=== PATIENT | female | born 1965 | race Caucasian/White ===

== ENCOUNTER 2019-06-14 16:58 | Observation (INO) | payer OTHER ==
[~2019-06-14] VITALS: Ht 165.1 cm; Wt 59.7 kg
[~2019-06-14 16:58] MED LIST: CENESTIN0.625 MG PO; OMEPRAZOLE20 M1 PO
[2019-06-14] MEDS ORDERED: KETOROLAC TROMETHAMINE 30 MG/ML VIAL IV NR (17:00)
[2019-06-14] MEDS ORDERED: PANTOPRAZOLE 40 MG 10ML VIAL IV NR (17:00)
[2019-06-14] MEDS ORDERED: MORPHINE SULFATE 2 MG/ML SYR 1ML IV NR (17:00)
[2019-06-14] MEDS ORDERED: SODIUM CHLORIDE 0.9% 1000ML 1,000 ML IV STA (17:00)
[2019-06-14] MEDS ORDERED: ONDANSETRON HCL INJ 2MG/ML 2ML 2 MG/ML VIAL IV NR (17:00)
--- OUTSIDE RECORDS SUMMARY | 2019-06-14 17:01 | XMS REPORT ---
Author Author [facility] Address Unknown Phone Unavailable Care Team Providers Care Flooring Installer Name Role Phone Unavailable Unavailable Payers Payer Name Policy Type Policy Number Effective Date Expiration Date Problems This patient has no known problems. Allergies, Adverse Reactions, Alerts Allergy Name Allergy Type Status Severity Reaction(s) Onset Date Inactive Date Treating Clinician Comments No Known Contrast Allergies DA Active U 2007-03-15 00:00:00 No Known Drug Allergies DA Active U 2007-03-15 00:00:00 No Known Food Allergies DA Active U 2007-03-15 00:00:00 No Known Other Allergies DA Active U 2007-03-15 00:00:00 No Known Drug Intolerances DA Active U 2005-07-03 00:00:00 Medications This patient has no known medications.
[2019-06-14] MEDS ORDERED: ONDANSETRON HCL INJ 2MG/ML 2ML 2 MG/ML VIAL ONE (17:12)
[2019-06-14 17:57] LABS: BASOPHILS % 0.2 % (0.0-1.0); EOSINOPHILS % 0.1 % (0.0-6.0); HEMATOCRIT 35.4 % (34.2-44.1); HEMOGLOBIN 11.9 g/dL (12.0-16.0); LYMPHOCYTES # (AUTO) 1.1 (1.0-3.2); LYMPHOCYTES % 12.3 % (18.0-39.1); MEAN CORPUSCULAR HEMOGLOBIN 30.4 pg (28-32); MEAN CORPUSCULAR HGB CONC 33.6 g/dL (31-35); MEAN CORPUSCULAR VOLUME 90.5 fL (81-99); MONOCYTES # (AUTO) 0.5 (0.2-0.8); MONOCYTES % 5.3 % (4.4-11.3); NEUTROPHILS # (AUTO) 7.2 (2.1-6.9); NEUTROPHILS % 81.8 % (38.7-80.0); PLATELET COUNT 177 x10e3/uL (140-360); RED BLOOD COUNT 3.91 x10e6/uL (3.6-5.1); RED CELL DISTRIBUTION WIDTH 12.1 % (11.7-14.4)
--- NOTE | 2019-06-14 18:00 | Diagnostic Imaging Report ---
EXAM: CT Abdomen and Pelvis WITHOUT contrast INDICATION: ^Stone Protocol ^[id number] ^1720 ^Y COMPARISON: None. TECHNIQUE: Abdomen and pelvis were scanned utilizing a multidetector helical scanner from the lung base to the pubic symphysis without administration of IV contrast. Absence of intravenous contrast decreases sensitivity for detection of focal lesions and vascular pathology. Coronal and sagittal reformations were obtained. Renal stone protocol was performed. IV CONTRAST: None. ORAL CONTRAST: Water RADIATION DOSE: Total DLP: 189.8 mGy*cm Estimated effective dose: (DLP x 0.015 x size factor) mSv COMPLICATIONS: None FINDINGS: LINES and TUBES: None. LOWER THORAX: Unremarkable HEPATOBILIARY: No focal hepatic lesions. No biliary ductal dilation. GALLBLADDER: No radio-opaque stones or sludge. No wall thickening. SPLEEN: No splenomegaly. PANCREAS: No focal masses or ductal dilatation. ADRENALS: No adrenal nodules KIDNEYS/URETERS: The right kidney appears swelling and associated with mild pelviectasis and minimal hydronephrosis. The proximal ureter is also mildly dilated in the proximal portion. Then is not visualized. No calcified stones are seen. No hydronephrosis on the left or stones in the left kidney or left ureter. No cystic or solid mass lesions. No stones. GI TRACT: No abnormal distention, wall thickening, or evidence of bowel obstruction. Status post appendectomy. PELVIC ORGANS/BLADDER: Status post hysterectomy. The urinary bladder is collapsed. LYMPH NODES: No lymphadenopathy. VESSELS: Unremarkable. PERITONEUM / RETROPERITONEUM: No free air or fluid. BONES: Unremarkable. SOFT TISSUES: Unremarkable. IMPRESSION: 1. Swelling of the right kidney with mild pelviectasis and minimal hydronephrosis without visualized calcified stone may reflect infection or recent passed stone. 2. Otherwise, no acute abnormalities in the abdomen and pelvis. Signed by: Dr. Diana Erickson M.D. on 06/14/2019 5:57 PM
[2019-06-14] MEDS ORDERED: CEFTRIAXONE SOD 1 GM/NS 50 ML 50 ML IV ONE (18:15)
[2019-06-14 18:22] LABS: INR 0.88; PROTHROMBIN TIME 12.4 seconds (11.9-14.5)
[2019-06-14 18:23] LABS: PARTIAL THROMBOPLASTIN TIME 27.9 seconds (23.8-35.5)
[2019-06-14] MEDS ORDERED: VANCOMYCIN 1GM/NS 250 ML 250 ML IV ONE (18:30)
[2019-06-14 18:33] LABS: ALANINE AMINOTRANSFERASE 16 IU/L (0-55); ALBUMIN 4.1 g/dL (3.5-5.0); ALBUMIN/GLOBULIN RATIO 1.5 (0.8-2.0); ALKALINE PHOSPHATASE 58 IU/L (40-150); AMYLASE 65 U/L (25-125); BLOOD UREA NITROGEN 17 mg/dL (7-26); BUN/CREATININE RATIO 15 (6-25); CALCIUM 9.7 mg/dL (8.4-10.2); CARBON DIOXIDE 23 mmol/L (22-29); CHLORIDE 106 mmol/L (98-107); CREATINE KINASE 150 IU/L (29-168); CREATININE, SERUM 1.13 mg/dL (0.57-1.11); EST GLOMERULAR FILTRATION RATE 51 ML/MIN (60-); GLUCOSE 97 mg/dL (74-118); SODIUM 140 mmol/L (136-145)
[2019-06-14 18:36] LABS: CLARITY,URINE CLEAR (CLEAR); COLOR,URINE YELLOW (YELLOW); LEUKOCYTE ESTERASE ,URINE NEGATIVE (NEGATIVE)
[2019-06-14 18:37] LABS: BILIRUBIN,URINE NEGATIVE (NEGATIVE); KETONES,URINE NEGATIVE (NEGATIVE); NITRITE,URINE NEGATIVE (NEGATIVE); PROTEIN,URINE DIPSTICK TRACE (NEGATIVE); RBC,URINE 0-5 /HPF (0-5); URINE UROBILINOGEN 0.2 mg/dL (0.2 - 1); WBC,URINE (MAN) 0-5 /HPF (0-5)
[2019-06-14 18:38] LABS: BACTERIA,URINE FEW /HPF; EPITHELIAL CELLS,URINE MODERATE /LPF
[2019-06-14 18:38] LABS: LIPASE < 4 U/L (8-78)
[2019-06-14] MEDS: CEFEPIME 2 GM/NS 0.9% 100 ML 100 ML IV SCH (18:51)
[2019-06-14] MEDS ORDERED: MORPHINE SULFATE 2 MG/ML SYR 1ML IV PRN (19:00)
[2019-06-14] MEDS ORDERED: ONDANSETRON HCL INJ 2MG/ML 2ML 2 MG/ML VIAL IV PRN (19:00)
[2019-06-14] MEDS ORDERED: FAMOTIDINE 20 MG/2 ML VIAL IV SCH (19:00)
[2019-06-14] MEDS ORDERED: PREMARIN0.45 MG PO (19:24)
[2019-06-14 20:00] VITALS: BP 135/63
[2019-06-14 20:09] VITALS: BP 117/68
[2019-06-14 20:13] VITALS: BP 117/68
[2019-06-14] MEDS ORDERED: SODIUM CHLORIDE 0.9% 250ML 250 ML ONE ×2 (20:26→20:55)
[2019-06-14] MEDS: KETOROLAC TROMETHAMINE 30 MG/ML VIAL IV PRN (23:11)
[2019-06-15] VITALS: BP 115/56
[2019-06-15 03:36] LABS: BASOPHILS % 0.2 % (0.0-1.0); EOSINOPHILS # (AUTO) 0.1 (0.0-0.4); HEMATOCRIT 32.4 % (34.2-44.1); HEMOGLOBIN 10.9 g/dL (12.0-16.0); LYMPHOCYTES # (AUTO) 1.6 (1.0-3.2); LYMPHOCYTES % 19.5 % (18.0-39.1); MEAN CORPUSCULAR HEMOGLOBIN 30.4 pg (28-32); MEAN CORPUSCULAR HGB CONC 33.6 g/dL (31-35); MEAN CORPUSCULAR VOLUME 90.3 fL (81-99); MONOCYTES # (AUTO) 0.5 (0.2-0.8); MONOCYTES % 5.9 % (4.4-11.3); NEUTROPHILS % 73.3 % (38.7-80.0); PLATELET COUNT 148 x10e3/uL (140-360); RED BLOOD COUNT 3.59 x10e6/uL (3.6-5.1)
[2019-06-15 03:53] LABS: ALBUMIN 3.4 g/dL (3.5-5.0); ALBUMIN/GLOBULIN RATIO 1.5 (0.8-2.0); ANION GAP 12.9 mmol/L (8-16); CALCIUM 8.5 mg/dL (8.4-10.2); CREATININE, SERUM 1.32 mg/dL (0.57-1.11); POTASSIUM 3.9 mmol/L (3.5-5.1)
[2019-06-15 04:00] VITALS: BP 102/49
[2019-06-15] MEDS: CEFEPIME 2 GM/NS 0.9% 100 ML 100 ML IV SCH (05:53)
[2019-06-15] MEDS ORDERED: HYDRALAZINE HCL 20 MG/ML VIAL IV PRN (06:15)
[2019-06-15] MEDS ORDERED: MELATONIN 5 MG TABLET PO PRN (06:15)
[2019-06-15] MEDS ORDERED: ACETAMINOPHEN 325 MG TAB PO PRN (06:15)
[2019-06-15] MEDS: PANTOPRAZOLE SOD 40 MG TABEC PO SCH ×2 (06:30→07:35)
[2019-06-15 06:50] LABS: CREATINE KINASE MB < 1.00 ng/mL (0-4.3)
--- NOTE | 2019-06-15 06:50 | NUR ---
report received at this time, patient aware of change and in no distress. call dean within reach and bed in lowest position.
[2019-06-15 07:30] VITALS: BP 105/49
[2019-06-15] MEDS ORDERED: FAMOTIDINE 20 MG TAB PO SCH (07:30)
[2019-06-15] MEDS: KETOROLAC TROMETHAMINE 30 MG/ML VIAL IV PRN (07:47)
[2019-06-15 08:05] LABS: BILIRUBIN,URINE NEGATIVE (NEGATIVE); CLARITY,URINE CLEAR (CLEAR); COLOR,URINE YELLOW (YELLOW); KETONES,URINE NEGATIVE (NEGATIVE); LEUKOCYTE ESTERASE ,URINE NEGATIVE (NEGATIVE); NITRITE,URINE NEGATIVE (NEGATIVE); PROTEIN,URINE DIPSTICK TRACE (NEGATIVE); URINE UROBILINOGEN 0.2 mg/dL (0.2 - 1)
[2019-06-15 08:18] LABS: RBC,URINE 0-5 /HPF (0-5); WBC,URINE (MAN) 0-5 /HPF (0-5)
[2019-06-15 08:19] LABS: BACTERIA,URINE RARE /HPF; EPITHELIAL CELLS,URINE FEW /LPF
[2019-06-15 08:25] VITALS: BP 105/49
[2019-06-15 11:50] LABS: CREATINE KINASE 102 IU/L (29-168)
[2019-06-15 12:09] VITALS: BP 102/49
[2019-06-15 15:36] LABS: CREATINE KINASE 121 IU/L (29-168)
[2019-06-15 16:22] VITALS: BP 115/56
[2019-06-15] MEDS ORDERED: KETOROLAC TROME10 MG PO (17:02)
[2019-06-15] MEDS ORDERED: LEVAQUIN500 MG PO (17:02)
--- NOTE | 2019-06-15 17:20 | NUR ---
patient alert and oriented with at bedside. discharge instructions given at this time, both verbalized understanding. IV discontinued, catheter in tact and small dressing applied. patient refused wheelchair assistance, but will ambulate with assist to personal auto for to drive home.
--- NOTE | 2019-06-15 20:58 | Consultation ---
DATE OF CONSULTATION: 06/15/2019 SERVICE: Urology. 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 No fever or chills. PAST MEDICAL HISTORY: Significant for hysterectomy and oophorectomy. She has a history of GERD as well. PAST SURGICAL HISTORY: Hysterectomy and oophorectomy as well as appendectomy. MEDICATIONS: See nurse's note. ALLERGIES: TO MEDICATIONS NOT KNOWN. REVIEW OF SYSTEMS: Twelve systems reviewed. Presently, she has no nausea and flank pain on the right side that she had before is minimal. PHYSICAL EXAMINATION: VITAL SIGNS: Temperature 97.3, blood pressure 102/49, and pulse 42. HEENT: Head, symmetric. Eyes, normal movement. NECK: No JVD. No masses. ABDOMEN: Soft and nontender. EXTREMITIES: No edema, moves all. LABORATORY DATA: CT scan suggest a minimum hydronephrosis on the right side with some changes in the kidney that may represent pyelonephritis there. White count 8.24 and hemoglobin 10.9. Sodium 140, chloride 108, bicarb 23, potassium 3.9, creatinine 1.32, and BUN is 17. INR 0.88. Bilirubin 1.4 and AST 15. IMPRESSION: 1. Possible right pyelonephritis. 2. Dysuria. 3. Mild right hydronephrosis. 4. Anemia. 5. Gastroesophageal reflux disease. 6. History of hysterectomy, oophorectomy, and appendectomy. PLAN: Presently, the urine culture is still pending. She is free from any symptoms and therefore, the culture is negative. She can be followed as outpatient. MD CHELLE Seymour/DANIEL /[id number]
== END 2019-06-15 17:30 | disposition home or self-care (01) ==
LOC: ER 17:02 → ERHOLD 19:07 → MED/SURG 20:01
PROVIDERS: ADMIT Internal Medicine; ATTEND Internal Medicine
DX: N13.6 Pyonephrosis (principal); N12 Tubulo-interstitial nephritis, not specified as acute or chronic; D64.9 Anemia, unspecified; Z90.710 Acquired absence of both cervix and uterus; K21.9 Gastro-esophageal reflux disease without esophagitis; R00.1 Bradycardia, unspecified
CPT/HCPCS: 36415 ×2; 74176; 80053 ×2; 81001 ×2; 82150; 82550 ×2; 82553 ×2; 83605; 83690; 84443; 84484 ×2; 85025 ×2; 85610; 85730; 87040; 87086 ×2; 99284; C9113; G0378 ×2; J1885 ×2; J2270; J2405; J3370; J7030; J7050; S0164

== ENCOUNTER → 2019-07-18 | Outpatient (CLI) | payer OTHER ==
[~2019-07-18] MED LIST changes: +KETOROLAC TROME10 MG PO; +LEVAQUIN500 MG PO; +PREMARIN0.45 MG PO
--- NOTE | 2019-07-18 13:46 | Diagnostic Imaging Report ---
Examination: CT BRAIN WO CONTRAST History:Headache Comparison studies:None Technique: Axial images were obtained from the skull base to the vertex. Coronal and sagittal images reconstructed from the axial data. Dose modulation, iterative reconstruction, and/or weight based adjustment of the mA/kV was utilized to reduce the radiation dose to as low as reasonably achievable. Intravenous contrast: None Findings: Scalp: No abnormalities. Bones: No fractures, blastic or lytic lesions. Brain sulci: Appropriate for age. Ventricles: Normal in size and configuration. No hydrocephalus. Extra-axial space: No abnormalities. Parenchyma: No abnormal densities. No masses, hemorrhage, or acute or chronic cortical based vascular insults.. Sellar/suprasellar region: No abnormalities. Craniocervical junction: Patent foramen magnum. No Chiari one malformation. Incidental findings: None. Impression: No intracranial abnormalities. Signed by: Dr. Mickie Colón M.D. on 07/18/2019 1:43 PM
== END ==
LOC: CT 12:56
PROVIDERS: ATTEND Internal Medicine
DX: R51 Headache (principal)
CPT/HCPCS: 70450

== ENCOUNTER 2021-11-11 11:34 | Emergency (ER) | payer OTHER ==
[~2021-11-11] VITALS: Ht 165.1 cm; Wt 59.4 kg
[2021-11-11] MEDS ORDERED: TETANUS/DIPHTHERIA TOX ADULT 0.5 ML SYR IM ONE (12:00)
[2021-11-11] MEDS ORDERED: LIDOCAINE 1% W/EPINEPHRINE 20 ML VIAL INJ ONE (12:00)
[2021-11-11] MEDS ORDERED: LIDOCAINE 1% W/EPINEPHRINE 20 ML VIAL ONE (12:01)
[2021-11-11] MEDS ORDERED: BACITRACIN ZINC 0.9GM TP ONE (12:46)
[2021-11-11] MEDS ORDERED: MUPIROCIN 2% OINT 22 GM TUBE ONE (12:46)
[2021-11-11] MEDS ORDERED: FLUORESCEIN SOD(OPTH) 1 MG STRP OP ONE (15:00)
[2021-11-11] MEDS ORDERED: TETRACAINE HCL 0.5% OPTH SOLN 4 ML BTL OP ONE (15:00)
== END 2021-11-11 13:01 | disposition home or self-care (01) ==
LOC: ER 11:53
DX: S01.111A Laceration without foreign body of right eyelid and periocular area, initial encounter (principal); W25.XXXA Contact with sharp glass, initial encounter; Y92.008 Other place in unspecified non-institutional (private) residence as the place of occurrence of the external cause; K21.9 Gastro-esophageal reflux disease without esophagitis
CPT/HCPCS: 99283

== ENCOUNTER 2021-12-02 09:59 | Inpatient (IN) | payer OTHER ==
[~2021-12-02] VITALS: Ht 165.1 cm; Wt 59.4 kg
[2021-12-02] MEDS ORDERED: SODIUM CHLORIDE 0.9% 1000ML 1,000 ML IV STA (10:02)
[2021-12-02] MEDS ORDERED: Morphine 4mg Syringe 4 MG/ML INJ IV STA (10:02)
[2021-12-02] MEDS ORDERED: ONDANSETRON HCL INJ 2MG/ML 2ML 2 MG/ML VIAL IV STA (10:02)
[2021-12-02 10:38] LABS: BASOPHILS # (AUTO) 0.1 (0.0-0.1); BASOPHILS % 0.9 % (0.0-1.0); EOSINOPHILS # (AUTO) 0.1 (0.0-0.4); HEMATOCRIT 41.2 % (34.2-44.1); HEMOGLOBIN 13.7 g/dL (12.0-16.0); LYMPHOCYTES # (AUTO) 2.1 (1.0-3.2); LYMPHOCYTES % 22.1 % (18.0-39.1); MEAN CORPUSCULAR HEMOGLOBIN 30.5 pg (28-32); MEAN CORPUSCULAR HGB CONC 33.3 g/dL (31-35); MEAN CORPUSCULAR VOLUME 91.8 fL (81-99); MONOCYTES # (AUTO) 0.4 (0.2-0.8); MONOCYTES % 4.6 % (4.4-11.3); NEUTROPHILS # (AUTO) 6.7 (2.1-6.9); NEUTROPHILS % 71.1 % (38.7-80.0); PLATELET COUNT 250 x10e3/uL (140-360); RED BLOOD COUNT 4.49 x10e6/uL (3.6-5.1); RED CELL DISTRIBUTION WIDTH 11.9 % (11.7-14.4)
[2021-12-02 10:53] LABS: INR 0.88; PARTIAL THROMBOPLASTIN TIME 23.8 seconds (23.8-35.5); PROTHROMBIN TIME 12.8 seconds (11.9-14.5)
[2021-12-02 10:57] LABS: ALANINE AMINOTRANSFERASE 26 IU/L (0-55); ALBUMIN 4.6 g/dL (3.5-5.0); ALBUMIN/GLOBULIN RATIO 1.5 (0.8-2.0); ALKALINE PHOSPHATASE 60 IU/L (40-150); AMYLASE 77 U/L (25-125); ANION GAP 19.5 mmol/L (8-16); BLOOD UREA NITROGEN 19 mg/dL (7-26); BUN/CREATININE RATIO 20 (6-25); CALCIUM 10.1 mg/dL (8.4-10.2); CARBON DIOXIDE 22 mmol/L (22-29); CHLORIDE 102 mmol/L (98-107); CREATINE KINASE 203 IU/L (29-168); CREATININE, SERUM 0.93 mg/dL (0.57-1.11); EST GLOMERULAR FILTRATION RATE 63 ML/MIN (60-); GLUCOSE 185 mg/dL (74-118); LIPASE 9 U/L (8-78); MAGNESIUM 1.8 MG/DL (1.3-2.1); POTASSIUM 3.5 mmol/L (3.5-5.1); SODIUM 140 mmol/L (136-145)
[2021-12-02] MEDS ORDERED: BENZOCAINE/TETRACAINE/BUTAMBEN AERO SPRAY 56 GM CAN TOP ONE (11:15)
[2021-12-02] MEDS ORDERED: Morphine 4mg Syringe 4 MG/ML INJ IV PRN (11:15)
[2021-12-02] MEDS ORDERED: ONDANSETRON HCL INJ 2MG/ML 2ML 2 MG/ML VIAL IV PRN (11:15)
[2021-12-02] MEDS: PIPERACILLIN/TAZOBACTAM 3.375 GM in SODIUM CHLORIDE 0.9% 50ML 50 ML IV SCH ×4 (11:56→23:57)
[2021-12-02] MEDS: SODIUM CHLORIDE 0.9% 1000ML 1,000 ML IV SCH ×2 (11:56→23:57)
[2021-12-02 12:47] VITALS: BP 143/67
[2021-12-02] MEDS ORDERED: BUPIVACAINE HCL 0.5% INJ 30 ML VIAL INJ ONE (13:19)
[2021-12-02] MEDS ORDERED: FENTANYL CITRATE/PF 100MCG/2 ML INJ ONE (13:49)
[2021-12-02] MEDS ORDERED: MIDAZOLAM HCL 2 MG/2 ML VIAL ONE (13:49)
[2021-12-02] MEDS ORDERED: HYDROMORPHONE 1MG/1ML INJ IV PRN (14:45)
[2021-12-02 15:49] VITALS: BP 115/50
[2021-12-02] MEDS: SODIUM CHLORIDE 0.9% 250ML IRRIG IR SCH ×2 (16:31→19:05)
[2021-12-02] MEDS ORDERED: CHLORASEPTIC SPRAY 177 ML BTL MM PRN (17:15)
[2021-12-02 17:16] VITALS: BP 132/60
[2021-12-02 18:20] VITALS: BP 132/60
[2021-12-02] MEDS: ACETAMINOPHEN 1000 MG/100 ML IV PRN (18:35)
[2021-12-02 18:41] LABS: CREATINE KINASE MB 2.1 ng/mL (0-5.0)
[2021-12-02] MEDS: KETOROLAC TROMETHAMINE 30 MG/ML VIAL IM PRN (19:25)
[2021-12-02] MEDS ORDERED: KETOROLAC TROMETHAMINE 30 MG/ML VIAL ONE (19:43)
[2021-12-02] MEDS ORDERED: ATROPINE SULFATE 1 MG/ML VIAL ONE (19:43)
[2021-12-02] MEDS ORDERED: SEVOFLURANE INHAL SOLN 250 ML PEN BTL ONE (19:43)
[2021-12-02] MEDS ORDERED: ROCURONIUM BROMIDE 10 MG/ML 5ML VIAL IV ONE (19:43)
[2021-12-02] MEDS ORDERED: LIDOCAINE HCL 2% LOCAL INJ 5 ML SDV VIAL INJ ONE (19:43)
[2021-12-02] MEDS ORDERED: DEXAMETHASONE SOD PHOS INJ 4 MG/ML SDV ONE (19:43)
[2021-12-02] MEDS ORDERED: SUCCINYLCHOLINE CHLORIDE 20 MG/ML 10ML VIAL ONE (19:43)
[2021-12-02] MEDS ORDERED: ONDANSETRON HCL INJ 2MG/ML 2ML 2 MG/ML VIAL ONE (19:43)
[2021-12-02] MEDS ORDERED: PROPOFOL IV EMULSION 10 MG/ML 20 ML VIAL ONE (19:43)
[2021-12-02] MEDS ORDERED: ACETAMINOPHEN 1000 MG/100 ML IV ONE (19:43)
[2021-12-02] MEDS ORDERED: POVIDONE IODINE 0.05% 0.05 % ML PO ONE (19:43)
[2021-12-02 20:00] VITALS: BP 116/48
[2021-12-03] VITALS: BP 121/55
[2021-12-03 04:00] VITALS: BP 113/46
[2021-12-03] MEDS: SODIUM CHLORIDE 0.9% 1000ML 1,000 ML IV SCH ×2 (04:47→07:30)
[2021-12-03] MEDS: PIPERACILLIN/TAZOBACTAM 3.375 GM in SODIUM CHLORIDE 0.9% 50ML 50 ML IV SCH ×2 (05:42→12:00)
[2021-12-03] MEDS: ACETAMINOPHEN 1000 MG/100 ML IV PRN (05:50)
[2021-12-03 05:52] LABS: BASOPHILS % 0.3 % (0.0-1.0); EOSINOPHILS % 0.1 % (0.0-6.0); HEMATOCRIT 31.1 % (34.2-44.1); HEMOGLOBIN 10.5 g/dL (12.0-16.0); LYMPHOCYTES # (AUTO) 1.1 (1.0-3.2); LYMPHOCYTES % 14.9 % (18.0-39.1); MEAN CORPUSCULAR HEMOGLOBIN 31.3 pg (28-32); MEAN CORPUSCULAR HGB CONC 33.8 g/dL (31-35); MEAN CORPUSCULAR VOLUME 92.8 fL (81-99); MONOCYTES # (AUTO) 0.4 (0.2-0.8); MONOCYTES % 5.6 % (4.4-11.3); NEUTROPHILS % 78.6 % (38.7-80.0); PLATELET COUNT 172 x10e3/uL (140-360); RED BLOOD COUNT 3.35 x10e6/uL (3.6-5.1)
[2021-12-03 06:08] LABS: ALBUMIN 3.1 g/dL (3.5-5.0); ALBUMIN/GLOBULIN RATIO 1.4 (0.8-2.0); ANION GAP 7.9 mmol/L (8-16); CALCIUM 7.5 mg/dL (8.4-10.2); CREATINE KINASE 114 IU/L (29-168); CREATININE, SERUM 0.81 mg/dL (0.57-1.11); POTASSIUM 3.9 mmol/L (3.5-5.1)
[2021-12-03 08:02] VITALS: BP 109/46
[2021-12-03] MEDS: KETOROLAC TROMETHAMINE 30 MG/ML VIAL IM PRN (08:50)
[2021-12-03 09:33] VITALS: BP 109/46
[2021-12-03 12:20] VITALS: BP 127/45
[2021-12-03 15:10] LABS: CREATINE KINASE 125 IU/L (29-168)
[2021-12-03 16:40] VITALS: BP 116/43
== END 2021-12-03 16:30 | disposition home or self-care (01) | DRG 335 ==
LOC: ER 10:20 → ERHOLD 11:17 → MED/SURG 12:28
PROC: 0DN84ZZ Release Small Intestine, Percutaneous Endoscopic Approach (ICD-10-PCS; 2021-12-02)
PROC: 0DNB4ZZ Release Ileum, Percutaneous Endoscopic Approach (ICD-10-PCS; principal; 2021-12-02 13:33)
DX: K56.50 Intestinal adhesions [bands], unspecified as to partial versus complete obstruction (principal); K55.029 Acute infarction of small intestine, extent unspecified; R00.1 Bradycardia, unspecified; K21.9 Gastro-esophageal reflux disease without esophagitis; Z90.49 Acquired absence of other specified parts of digestive tract; K56.2 Volvulus; Z20.822 Contact with and (suspected) exposure to COVID-19
CPT/HCPCS: 36415; 74176; 80053; 82150; 82550; 82553; 83690; 83735; 84484; 85025; 85610; 85730; 93005; 94799; 99284; J0330; J0461; J1100; J1885; J2001; J2250; J2270; J2405; J2543; J3010; J7030; U0002